=== PATIENT | male | born 1985 | race Two or more races ===

== ENCOUNTER 2018-01-17 21:21 | Emergency (ER) | payer SELFPAY ==
[~2018-01-17] VITALS: Ht 175.3 cm; Wt 86.0 kg
[2018-01-17] MEDS ORDERED: KETOROLAC 30MG/ML VIAL IM ONE (23:30)
[2018-01-17] MEDS ORDERED: DIPHENHYDRAMINE 50MG/ML VIAL IM ONE (23:30)
[2018-01-18] MEDS ORDERED: ACETAMINOPHEN 325MG TABLET PO STA (02:01)
[2018-01-18 05:10] VITALS: BP 141/94
== END 2018-01-18 05:10 | disposition home or self-care (01) ==
LOC: ER 21:21
DX: S50.362A Insect bite (nonvenomous) of left elbow, initial encounter (principal); L03.114 Cellulitis of left upper limb; W57.XXXA Bitten or stung by nonvenomous insect and other nonvenomous arthropods, initial encounter; F17.200 Nicotine dependence, unspecified, uncomplicated; F12.10 Cannabis abuse, uncomplicated
CPT/HCPCS: 93005; 96372; 99284; J1200; J1885; Z7610